=== PATIENT | female | born 1945 | race Hispanic/Latino ===

== ENCOUNTER 2017-02-07 01:34 | Day surgery (SDC) | payer MEDICARE, OTHER ==
[~2017-02-07] VITALS: Ht 154.9 cm; Wt 65.8 kg
[~2017-02-07 01:34] MED LIST: CHOL10008 PO; GARL1000 PO; LIP40 PO; MVI PO; OMEP40CA36 PO; [UNRECOGNIZED DRUG - CODE] PO
[2017-02-07] MEDS ORDERED: 0.9% Sodium Chloride 1,000 ML IV SCH (06:00)
[2017-02-07] MEDS ORDERED: fentaNYL-PF 50 mCg/mL 2 mL Inj IVPUSH PRN (06:00)
[2017-02-07] MEDS ORDERED: Sodium Chloride LOK Flush 10 mL Syringe IV PRN (06:00)
[2017-02-07 10:16] VITALS: BP 137/74; PULSE 68; RESP 14; O2SAT 100
[2017-02-07 12:16] VITALS: BP 119/66; PULSE 74; RESP 16; O2SAT 95
[2017-02-07 12:32] VITALS: BP 81/58; PULSE 72; RESP 14; O2SAT 97
[2017-02-07 12:40] VITALS: BP 108/59; PULSE 69; RESP 14; O2SAT 98
--- NOTE | 2017-02-07 20:46 | ENDO ---
[address] [address] ENDOSCOPY PROCEDURE PATIENT: PEGGY RIOJAS : 1945 MR#: [id number] ADMIT: 02/07/2017 JOB ID: [id number] PROCEDURE: Colonoscopy. INDICATIONS: Screening. The patient's ASA classification is 2, Mallampati score 2. MEDICATIONS: Please nurse's notes for medications for sedation INSTRUMENT USED: PCF H 180 AL. PREPARATION QUALITY: Fair. PROCEDURE DETAILS: After informed consent was obtained, the patient was brought to the GI suite, where she was placed on oxygen via nasal cannula and monitored with continuous pulse oximeter, telemetry, and blood pressure monitoring. A time-out was performed, then she was placed in the left lateral decubitus position and medications were administered for sedation. Digital rectal exam was normal. The colonoscope was then inserted into the rectum and advanced under direct visualization to the cecum which was identified by the presence of the ileocecal valve and appendiceal orifice. Once the cecum was reached, colonoscope was withdrawn back into the rectum as the mucosa and lumen were examined. In the rectum, retroflexion was performed. Following retroflexion, remaining air in the rectum was suctioned and the procedure was completed. FINDINGS: 1. Melanosis coli. 2. Internal hemorrhoids. RECOMMENDATIONS: Repeat colonoscopy in 8-10 years, sooner if symptoms should dictate. COMPLICATIONS: None. ESTIMATED BLOOD LOSS: 0. MTDD
== END 2017-02-07 23:59 | disposition home or self-care (01) ==
LOC: END 01:34
PROVIDERS: ATTEND Internal Medicine Gastroenterology
DX: Z12.11 Encounter for screening for malignant neoplasm of colon (principal); K63.89 Other specified diseases of intestine; K64.8 Other hemorrhoids; R03.0 Elevated blood-pressure reading, without diagnosis of hypertension; E78.5 Hyperlipidemia, unspecified; K21.9 Gastro-esophageal reflux disease without esophagitis; M54.5 Low back pain; Z96.1 Presence of intraocular lens
CPT/HCPCS: G0121; G0500; J7030

== ENCOUNTER 2017-06-16 16:32 | Emergency (ER) | payer OTHER, MEDICARE ==
[~2017-06-16] VITALS: Ht 154.9 cm; Wt 66.4 kg
[2017-06-16 17:15] VITALS: BP 124/74; PULSE 99; RESP 16; O2SAT 99
--- NOTE | 2017-06-16 18:15 | DRSVH ---
PROCEDURE: X-RAY RIGHT KNEE, THREE VIEWS ([id number]) INDICATIONS: fall TECHNIQUE: 3 views of the knee were acquired. COMPARISON: None. FINDINGS: Bones: No fractures or dislocations. Subchondral cortical bone of the femoral condyles is irregular and there medial and lateral marginal osteophytes in all compartments. There is also some joint space and the patellofemoral compartment. Soft tissues: No joint effusion. Chondrocalcinosis is present. IMPRESSION: 1. Moderate to severe osteoarthritic change in the patellofemoral joint. Her 2. Mild to moderate oste oarthritic changes in the medial lateral compartments. 3. Chondrocalcinosis medially and laterally. Dictated by: Zacarias Pickard M.D. on 06/16/2017 at 18:12 Approved by: Zacarias Pickard M.D. on 06/16/2017 at 18:14
--- NOTE | 2017-06-16 18:16 | DRSVH ---
PROCEDURE: X-RAY PELVIS W/LAT HIP (RT) ([id number]) INDICATIONS: fall TECHNIQUE: AP pelvis with lateral view(s) of the right hip(s). COMPARISON: None. FINDINGS: Bones: No fractures or dislocations. Pelvic ring appears intact. No suspicious bony lesions. Soft tissues: The visualized bowel gas pattern is normal. No suspicious soft tissue calcifications. IMPRESSION: No acute abnormality is seen in the pelvis or right hip. Dictated by: Zacarias Pickard M.D. on 06/16/2017 at 18:14 Approved by: Zacarias Pickard M.D. on 06/16/2017 at 18:15
--- NOTE | 2017-06-16 20:56 | ED.REPORT ---
HPI-General Illness Date of Service Jun 16, 2017 ED Provider: Mickey Miller MD Pt is a 72 y/o female with a history of arthritis and right knee surgery who presents to the ED c/o right hip pain s/p a fall onset today while shopping at [employer]. She states she slipped on something and lost her balance when she fell , though she denies hitting her head during the fall. She describes her pain as "aching" and rates the severity at 2/10 that improved with ED medication. Additional symptoms include right knee pain, headache, neck pain, and lower back pain. She denies lightheadedness, LOC, one-sided weakness, chest pain, bladder or bowel incontinence, urinary frequency, abdominal pain, nausea, vision changes, diarrhea, vomiting, fever, chills, rash, SOB, or any other symptoms. Nursing Notes Stated Complaint: FELL ON RIGHT KNEE Chief Complaint: Extremity Trauma Nursing Notes Reviewed: Yes Allergies: Coded Allergies: No Known Allergies (Verified Allergy, Unknown, 06/16/17) Scheduled Atorvastatin-Expunged Drug, Do Not Renew! (Atorvastatin-Expunged Drug, Do Not Renew!) 40 Mg Tablet 40 MG PO DAILY Cholecalciferol-Expunged Drug, Do Not Renew! (Vitamin D3-Expunged Drug, Do Not Renew!) 1,000 Unit Tab.chew 2,000 UNIT PO DAILY Glucosamine Hcl (Glucosamine Hcl) 500 Mg Tablet 500 MG PO DAILY Omeprazole (Omeprazole) 40 Mg Capsule.dr 40 MG PO DAILY Therapeutic Multivit/Minerals-Expunged Drug, (Therapeutic Multivit/Minerals- Expunged Drug,) 1 Ea Tab 1 TAB PO DAILY Miscellaneous Medications Garlic (Garlic Oil) 1,000 Mg Capsule 1,000 MG PO General Time Seen by MD: 19:58 Chief Complaint Other (Right hip pain) Hx Obtained From: Patient Arrived By: Walk-in Sudden in Onset?: Yes Onset Occurred: 1 - 4 hours ago Symptom Duration: Constant Caused by: Fall on ground Location: : Hip right Quality: Painful Severity: Current: Pain level 2 out of 10 Severity: Maximum: Moderate Additional Notes: Right knee pain, lower back pain Pertinent Negative: Pt denies other symptoms Relieved by: Prescription meds Recent Healthcare: No recent doctor visit, No recent hospitalization Similar Sx Previous: No Past Medical History Past Medical History Arthritis Reports: GERD Past Surgical History Right knee surgery Left knee replacement Right shoulder surgery Reports: Appendectomy, , Tonsillectomy Social History Alcohol Use: "Social" Other Social History: Good social support Ambulatory Status Independent Review of Systems Full Review of Systems Constitutional: Denies: Chills, Fever Eyes: Denies: Blurred bilateral Respiratory: Denies: Shortness of breath Cardiovascular: Denies: Chest pain GI: Denies: Abdominal pain, Diarrhea, Nausea, Vomiting Female: Denies: Incontinence, Urinary frequency Musculoskeletal: Reports: Back pain (lower back), Extremity pain (right knee pain), Neck pain Skin: Denies Rash Neurologic: Reports: Headache, Denies: Change LOC, Focal weakness, Lightheaded, Vision change Psychiatric: Denies: Change mental status Complete sys rev & neg: except as marked. Physical Exam Nursing note and vitals reviewed. Constitutional: Well-developed, well-nourished. Not diaphoretic. Head: Normocephalic and atraumatic. Mouth/Throat: Oropharynx is clear and moist. No oropharyngeal exudate. Eyes: EOM are normal. Pupils are equal, round, and reactive to light. Neck: Supple, no tracheal deviation. Cardiovascular: Normal rate, regular rhythm. Equal and intact distal pulses throughout. Pulmonary/Chest: Effort normal and breath sounds normal. No respiratory distress. Abdominal: Soft. No distension. There is no tenderness, rebound, or guarding. Bowel sounds present. Musculoskeletal: Diffuse pain around right knee with no bony tenderness. Joint is stable with no laxity. No cervical, thoracic, or lumbar tenderness is appreciated. Neurological: AOx3. Grossly nonfocal exam. Strength and sensation intact and equal to bilateral upper and lower extremities Skin: Warm and dry, no rashes or pallor appreciated. Psychiatric: Appropriate mood and affect. Behavior appears normal. Vital Signs Vital Signs Date Time Temp Pulse Resp B/P Pulse Ox O2 Delivery O2 Flow Rate FiO2 06/17/17 02:35 36.9 84 16 120/68 96 Room Air 06/16/17 17:15 37.0 99 16 124/74 99 Room Air Initial VS: Reviewed Interpretation & Diagnostics X-Ray Interpretation Xray Interpretation: RIGHT HIP/PELVIS X-RAY: IMPRESSION: No acute abnormality is seen in the pelvis or right hip. Dictated by: Zacarias Pickard M.D. on 06/16/2017 at 18:14 Approved by: Zacarias Pickard M.D. on 06/16/2017 at 18:15 X-Ray Ordered: Pelvis, Hip right Interpretation / Wet Read by: Interpret - Radiologist Xray Interpretation: RIGHT KNEE X-RAY IMPRESSION: 1. Moderate to severe osteoarthritic change in the patellofemoral joint. 2. Mild to moderate osteoarthritic changes in the medial lateral compartments. 3. Chondrocalcinosis medially and laterally. Dictated by: Zacarias Pickard M.D. on 06/16/2017 at 18:12 Approved by: Zacarias Pickard M.D. on 06/16/2017 at 18:14 X-Ray Ordered: Knee right Interpretation / Wet Read by: Interpret - Radiologist CT Head Interpretation Conclusion: normal Study: Head CT no contrast Interpretation / Wet Read by: Interpret - Radiologist CT C-Spine Interpretation CT cervical spine: No acute osseous pathology only degenerative changes as outlined above. Study type: CT no contrast Interpretation / Wet Read by: Interpret - Radiologist Re-Eval/Medical Decision Med Decision/Clinical Course 72-year-old female presenting to the ED after a clear mechanical fall earlier today while at [facility]. Having right knee, right hip, and low back pain, however also having a headache. Plain films of the patient's right knee and right hip negative for acute fracture or other acute abnormality. No midline C , T, or L-spine tenderness to palpation, no bowel or bladder incontinence, no urinary retention. Head CT is negative for acute abnormality, as is the CT of her cervical spine. Upon reassessment, patient is feeling better. No indication for medical workup for the fall as it was clearly mechanical. Plan discharge with careful return precautions, PCP follow-up in the next 1-2 days. Patient agreeable to the plan as stated, no further questions. Source of Hx: Old records Time of Eval: 22:29 Re-Evaluation/Progress Note: Discussed need for CT head. Pt needs to get her grandson home so she will leave AMA and return to ED tonight. Time of Eval: 01:39 Patient Status: Condition improved Re-Evaluation/Progress Note: Patient rechecked. Discussed plan for discharge. Patient understands and agrees with plan. F/U instructions and RTER warnings given. All questions addressed at this time. Counseled Regarding: Diagnosis, Lab results, Need for follow-up, When/why to return to ED Discharge & Departure Primary Impression: Right hip pain Additional Impressions: Back pain Back pain location: back pain in unspecified location Chronicity: unspecified Back pain laterality: unspecified Qualified Code: M54.9 - Dorsalgia, unspecified Knee pain Laterality: right Chronicity: unspecified Qualified Code: M25.561 - Pain in right knee Disposition: Home Discharge Condition All VS Reviewed: Yes Condition: Stable Patient Instructions: Acute Low Back Pain (ED), Fall Prevention (ED), Hip Pain (ED), Knee Pain (ED) Additional Instructions: Thank you for allowing us to be a part of your care in the ED today. Please schedule a follow up appointment with your primary care physician tomorrow for a recheck of your symptoms. Please return to the emergency department for any new or worsening symptoms including any worsening headache, problem with your bowel or bladder, can't urinate, vomiting, worsening leg pain, one sided weakness/numbness, fevers, or chills, or if there's anything else of concern to you. Referrals: Pritesh Delatorre PA-C (PCP) Scribe Attestation Portions of this note were transcribed by Jocelyne Brambila. I, Dr. Miller, personally performed the history, physical exam and medical decision-making; I reviewed and confirmed the accuracy of the information in the transcribed note. copies to: Pritesh Delatorre PA-C, William B MD Jun 16, 2017 20:55 Jocelyne Brambila Jun 16, 2017 21:18 copies to: Pritesh Delatorre PA-C, William B MD Jun 16, 2017 20:55 Jocelyne Brambila Jun 16, 2017 21:18
[2017-06-17 02:35] VITALS: BP 120/68; PULSE 84; RESP 16; O2SAT 96
--- NOTE | 2017-06-17 09:02 | DRSVH ---
PROCEDURE: CT BRAIN WITHOUT CONTRAST ([id number]) INDICATIONS: unsteadiness TECHNIQUE: Noncontrast 4.5 mm thick angled axial sections acquired from the foramen magnum to the vertex, with c oronal reformats. COMPARISON: CT brain 01/11/2009 FINDINGS: Preliminary report by weight shifter radiology Image quality: Excellent. CSF spaces: Basal cisterns are patent. No extra-axial fluid collections. The ventricles are symmet clinton in size and shape. Brain: No intracranial bleeds or masses. There is cerebral volume loss for age, with resultant vent ricular and sulcal prominence. There are periventricular and deep white matter chronic small vessel ischemic changes. There is intracranial internal carotid artery atherosclerosis. Skull and face: Calvarium and visualized facial bones appear intact, without suspicious lesions. Sinuses: Visualized sinuses and mastoids are clear. IMPRESSION: Normal CT brain scan. Findings are concordant with the preliminary report. Dictated by: Juanjo Salinas M.D. on 06/17/2017 at 8:59 Approved by: Juanjo Salinas M.D. on 06/17/2017 at 9:00
--- NOTE | 2017-06-17 09:09 | DRSVH ---
PROCEDURE: CT CERVICAL SPINE WITHOUT CONTRAST ([id number]) INDICATIONS: unsteadiness TECHNIQUE: Noncontrast 3 mm thick sections acquired from the skull base to the T4 level. Sagittal and coronal r eformats were then constructed. For radiation dose reduction, the following was used: automated exp osure control, adjustment of mA and/or kV according to patient size. COMPARISON: Cervical spine 09/03/2012, 02/01/2009 FINDINGS: Preliminary report by assistant casino shift manager radiology Image quality: Excellent. Bones: Loss of cervical lordosis may be positional or related to muscle spasm. Degenerative disc dis ease and spondylosis C3-4, C4-5, C5-6 and C6-7. No fractures or dislocations. Visualized superior ri bs are intact. Soft tissues: Prevertebral soft tissues are normal in thickness. No paravertebral hematomas. Degene rative ligamentous calcifications posterior to the odontoid process and the C3-4 disc space. No apica l pneumothoraces. IMPRESSION: 1. Loss of cervical lordosis. 2. No fracture deformity or significant malalignment. 3. Multilevel degenerative disc disease, spondylosis and ligamentous calcification. Findings are concordant with the preliminary report. Dictated by: Juanjo Salinas M.D. on 06/17/2017 at 9:00 Approved by: Juanjo Salinas M.D. on 06/17/2017 at 9:07
== END 2017-06-17 02:36 | disposition home or self-care (01) ==
LOC: SED 16:32
DX: M25.551 Pain in right hip (principal); M25.561 Pain in right knee; M54.5 Low back pain; W01.0XXA Fall on same level from slipping, tripping and stumbling without subsequent striking against object, initial encounter; Y93.89 Activity, other specified; Y92.512 Supermarket, store or market as the place of occurrence of the external cause; Y99.8 Other external cause status; R51 Headache; M54.2 Cervicalgia; K21.9 Gastro-esophageal reflux disease without esophagitis; Z96.652 Presence of left artificial knee joint; Z98.890 Other specified postprocedural states; Z90.89 Acquired absence of other organs
CPT/HCPCS: 70450; 72125; 73501; 73562; 96372; 99285; J1885